=== PATIENT | male | born 1990 | race Caucasian/White ===

== ENCOUNTER 2025-05-30 15:01 | Emergency (ER) | payer OTHER ==
[~2025-05-30] VITALS: Ht 175.3 cm; Wt 97.5 kg
[2025-05-30 15:11] LABS: BASOPHILS 0.9 % (0.2-1.2); EOSINOPHILS 2.1 % (0.8-7.0); LYMPHOCYTES 38.1 % (21.8-53.1); MCH 31.6 PG (25.7-32.2); MCHC 34.2 g/dL (32.3-36.5); MCV 92.2 fL (79.0-92.2); MONOCYTES 12.1 % (5.3-12.2); NEUTROPHILS 46.6 % (34.0-67.9); RBC 4.88 M/uL (4.63-6.08)
[2025-05-30] MEDS ORDERED: ASPIRIN 81 MG CHEW PO ONE (15:15)
[2025-05-30 15:30] LABS: ALT (SGPT) 42 U/L (14-59); AST (SGOT) 21 U/L (15-37); GLOMERULAR FILTRATION RATE,EST 63 mL/min (>60); PROTEIN, TOTAL 7.0 g/dL (6.4-8.2); UREA NITROGEN 13 mg/dL (7-18)
[2025-05-30 17:24] VITALS: BP 144/87
--- NOTE | 2025-06-01 16:00 | EKG ---
[facility] [address] [place], [place] [address] Signed Normal sinus rhythm Left axis deviation Nonspecific intraventricular conduction delay Abnormal ECG No previous ECGs available Confirmed by Óscar Goetz MD ([id number]) on 06/01/2025 4:00:39 PM Electronically Signed By: ÓSCAR GOETZ MD 06/01/25 1600 PATIENT NAME: ANDREW CRUM PRISCILA Electrocardiogram DATE OF : 89 PHYSICIAN: ÓSCAR GOETZ MD REPORT #: [id number] REPORT IS CONFIDENTIAL AND NOT TO BE RELEASED WITHOUT AUTHORIZATION
== END 2025-05-30 17:24 | disposition home or self-care (01) ==
LOC: ED 15:01
PROVIDERS: Emergency Medicine
DX: R07.9 Chest pain, unspecified (principal)
CPT/HCPCS: 36415; 71045; 80053; 83735; 84484; 85025; 93005; 93010; 99285-25